=== PATIENT | female | born 1955 | race Caucasian/White ===

== ENCOUNTER 2019-07-31 13:55 | Outpatient (AMBR) | payer OTHER, MEDICAID, SELFPAY ==
--- NOTE | 2019-07-27 12:14 | PTNOTE_ITS ---
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 The shoulder pain started 3 years ago and it gets worse this past year. Her pain level prior to surgery is 10/10. MRI was done and showed rotator cuff tear. SHe had surgery last 07/10/[address] Pires. After surgery, for the first 2-3 days, the pain was constant PS 10/10. She had the shoulder sling but it makes her uncomfortable so she is not wearing it. At the time of PT evaluation she is 2 weeks post op. She has pain on her shoulder at most is PS10/10 especially during movement. She lives alone at home and nobody is assisting her in her ADL's. She takes Tylenol for pain. Her main concern is if she can go back to work after her rotator cuff surgery. She also complains of muscle tightness on her Neck. Objective R shoulder AROM // PROM Flexion 65/85 abduction 60//75 IR 50//65 ER 45//50 Extension 30//45 (+) Drop Arm Test (+) Speed's test MMT R shoulder 2-/5 grossly graded Postural assessment R shoulder is lower than L (+) muscle tightness on her Upper and middle trapezius R shoulder Surgical site has mild edema and warm to touch. Assessment Patient will benefit for strengthening ex on R shoulder muscle, Stretching, manual therapy and pain management. Patient were educated on how to do codman exercise, she was able to do return demonstration by 80% accuracy. Patient were also educated to apply Cold pack bid at home. Patient were also educated for now to avoid overhead reaching and abduction past 90deg. No lifting more than 10lbs on her R UE. APply a rolled towel whenever she is sleeping or sitting on the couch. Patient verbalized understanding. Short Term and Fpc Goals 1. Increase Muscle strength on her R shoulder to 4/5 x 12 weeks 2. To decrease pain on her R shoulder to 0/10 x 8 weeks 3. Increase ROM on her R shoulder to WNL x 8 weeks 4. I with HEP Treatment Plan Thera ex Manual tx Modalities (cold pack, hmp, US) prn Kinesiotaping. Frequency and Duration 2x/wk x 12 weeks Certification Dates: 07/27/2019 to 10/27/2019
--- NOTE | 2019-07-31 16:33 | PT.ODAYNRPT ---
PT Outpatient Daily Note Date of Service: 07/31/2019 OP Daily Note Visit Reasons: right rotator cuff repair Outpatient Physical Therapy Treatment Date: 07/31/19 Subjective: pt says her shoulder is tolerable as she does take pain meds. Objective: see flow sheet. Assessment: pt came in wiht no sling. she was performing exercises as if her shoulder was fine. she did not complain much about the pain during exercises it more about her limited mobility. she did lack the strength during her wand exercises. she was not able to bring her shoulder flexion to shoulder height. advised pt to continue wand exercises at home. Plan: continue POC per PT. Length of Time (minutes) of Treatment: 30 Minutes Office Procedures PT Procedures PT Date of Service: 07/27/19 OP PT Eval Mod Complex 30 minutes: Yes PT Procedures PT Date of Service: 07/31/19 Therapeutic Exercise 30 minutes: Yes
--- NOTE | 2019-08-06 12:42 | PT.ODAYNRPT ---
PT Outpatient Daily Note Date of Service: 08/06/2019 OP Daily Note Pediatric or Adult Patient: Adult PT >13 Visit Reasons: right rotator cuff repair Outpatient Physical Therapy Treatment Date: 08/06/19 Subjective: pain on the R shoulder Objective: pls see FS Assessment: Patient was wearing her blue shoulder sling without a shoulder abductor. She mentioned that her shoulder hurts whenever there is no support so she wears them for support. Patient were given a rolled towel to be place in between her arm and body to placed the shoulder in resting position. she mentioned that helps her to not have pain. P PROM done today No AROM as of this time. Patient has limited ROM on all shoulder movement with muscle weakness. Plan: To continue POC toward goals Pain Present Currently: Yes Length of Time (minutes) of Treatment: 30 Minutes Office Procedures PT Procedures PT Date of Service: 07/27/19 OP PT Eval Mod Complex 30 minutes: Yes PT Procedures PT Date of Service: 07/31/19 Therapeutic Exercise 30 minutes: Yes
== END 2019-08-09 23:59 | disposition home or self-care (01) ==
PROVIDERS: PCP Nurse Practitioner Primary Care; Referring Provider Nurse Practitioner Primary Care; Visit Provider Orthopaedic Surgery
DX: Z98.890 Other specified postprocedural states (principal); M25.511 Pain in right shoulder; M62.81 Muscle weakness (generalized)
CPT/HCPCS: 97110; 97162

== ENCOUNTER 2019-09-07 10:26 | Outpatient (AMBR) | payer OTHER, MEDICAID, SELFPAY ==
--- NOTE | 2019-08-13 12:17 | PT.ODAYNRPT ---
PT Outpatient Daily Note Date of Service: 08/13/2019 OP Daily Note Pediatric or Adult Patient: Adult PT >13 Visit Reasons: right rotator cuff repair Outpatient Physical Therapy Treatment Date: 08/13/19 Assessment: Patient states she is not comfortable wearing the sling at night. she is more comfortable using the pillow for support at night. Patient were advised the use the pillow at night fo support because she said without the support her shoulder hurts. During the day, she mentioned that the slings help her during the day because without support her shoulder is hanging and it hurts her. Patient is 4 weeks post op. PROM done today on R shoulder and active ROM on elbow flexion and supination and pronation with 1lb DB and digiflex for R hand. Patient was complaining of anterior elbow pain during the day. Patient were advised to not use the sling 24 hours and give it a rest to have the patient positioned the shoulder in the pillow. Plan: To continue POC toward goals. Pain Present Currently: Yes Length of Time (minutes) of Treatment: 30 Minutes
--- NOTE | 2019-08-17 10:13 | PT.ODAYNRPT ---
PT Outpatient Daily Note Date of Service: 08/17/2019 OP Daily Note Pediatric or Adult Patient: Adult PT >13 Visit Reasons: right rotator cuff repair Outpatient Physical Therapy Treatment Date: 08/17/19 Subjective: Pain on the shoulder upon movement Objective: pls see FS Assessment: Patient were given PROM on R shoulder with gentle passive stretching. AAROM on L shoulder x 25% of movement only. Patient were given HEP with PROM done. Patient was complaining of pain on her anterior elbow down to her thumb and notice she still can't hold on the cup and has slight tremor. Could probably due to muscle weakness. Still has pain in movement. Unable to do full PROM due to pain especially abduction. Abduction PROM only able to do 90deg today. Plan: To continue POC toward goals Pain Present Currently: Yes Length of Time (minutes) of Treatment: 30 Minutes Office Procedures PT Procedures PT Date of Service: 08/13/19 Therapeutic Exercise 30 minutes: Yes
--- NOTE | 2019-08-20 10:28 | PTNOTE_ITS ---
PT Outpatient Daily Note Date of Service: 08/20/2019 OP Daily Note Visit Reasons: right rotator cuff repair Outpatient Physical Therapy Treatment Date: 08/20/19 Subjective: No new complaints Objective: pls see FS Assessment: Patient went to her ortho md yesterday made him aware about the elbow pain that she has. as per MD, it will go away eventually. Patient were given PROM today and AAROm with the use of wand. Exercise were given to the point of pain not pass the pain. Patient were also given strengthening ex on elb ow. wrist and fingers. Ice pack were given post therapy. No new complaints noted. Plan: to continue POC toward goals Pain Present Currently: Yes (07/18) Length of Time (minutes) of Treatment: 30 Minutes Office Procedures PT Procedures PT Date of Service: 08/17/19 Therapeutic Exercise 30 minutes: Yes PT Procedures PT Date of Service: 08/13/19 Therapeutic Exercise 30 minutes: Yes
--- NOTE | 2019-08-24 09:20 | PT.ODAYNRPT ---
PT Outpatient Daily Note Date of Service: 08/24/19 OP Daily Note Pediatric or Adult Patient: Adult PT >13 Visit Reasons: right rotator cuff repair Outpatient Physical Therapy Treatment Date: 08/24/19 Subjective: Patient has no new complaints today Objective: Pls see FS Assessment: No pain today on the elbow area. PROM done today. No stretching today. Patient were educated that we will try to initiate gentle passive stretching on her next appt. A little bit of stretching only to the point of pain not over. Initiated isometric exercise today with 5SH x 5 reps on flexion and abduction. [employer] utilized to explained to the patient. Patient were given 2lbs for elbow flexion and extension and digiflex for hand exercise. No pain noted. Ice applied after therapy. Plan: To continue POC toward goals Length of Time (minutes) of Treatment: 30 Minutes Office Procedures PT Procedures PT Date of Service: 08/17/19 Therapeutic Exercise 30 minutes: Yes PT Procedures PT Date of Service: 08/13/19 Therapeutic Exercise 30 minutes: Yes PT Procedures PT Date of Service: 08/20/19 Therapeutic Exercise 30 minutes: Yes
--- NOTE | 2019-08-27 10:13 | PT.ODAYNRPT ---
PT Outpatient Daily Note Date of Service: 08/27/19 OP Daily Note Pediatric or Adult Patient: Adult PT >13 Visit Reasons: right rotator cuff repair Outpatient Physical Therapy Treatment Date: 08/27/19 Subjective: No new complaints Objective: pls see FS Assessment: Initiated AAROM to AROM today. Patient were able to tolerate without increase of pain. NO stretching done today. Patient were given strengthening ex on elbow, wrist and hand today. No increase in pain during therapy session. Icepack applied post therapy. Plan: To continue POC toward goals. Pain Present Currently: Yes Length of Time (minutes) of Treatment: 30 Minutes Office Procedures PT Procedures PT Date of Service: 08/17/19 Therapeutic Exercise 30 minutes: Yes PT Procedures PT Date of Service: 08/24/19 Therapeutic Exercise 30 minutes: Yes PT Procedures PT Date of Service: 08/13/19 Therapeutic Exercise 30 minutes: Yes PT Procedures PT Date of Service: 08/20/19 Therapeutic Exercise 30 minutes: Yes
--- NOTE | 2019-08-31 09:56 | PT.ODAYNRPT ---
PT Outpatient Daily Note Date of Service: 08/31/19 OP Daily Note Visit Reasons: right rotator cuff repair Outpatient Physical Therapy Treatment Date: 08/31/19 Subjective: no new complaints Objective: pls see FS Assessment: initiated light resistance exercise today. No complain of increase pain today. PS 4/10 for exercise. Initiated gentle passive stretching today towards flexion and abduction to the point of pain. Ice applied post therapy session. Plan: To continue POC toward goals. Pain Present Currently: Yes Length of Time (minutes) of Treatment: 30 Minutes Office Procedures PT Procedures PT Date of Service: 08/17/19 Therapeutic Exercise 30 minutes: Yes PT Procedures PT Date of Service: 08/24/19 Therapeutic Exercise 30 minutes: Yes PT Procedures PT Date of Service: 08/13/19 Therapeutic Exercise 30 minutes: Yes PT Procedures PT Date of Service: 08/20/19 Therapeutic Exercise 30 minutes: Yes PT Procedures PT Date of Service: 08/27/19 Therapeutic Exercise 30 minutes: Yes
--- NOTE | 2019-09-03 11:01 | PT.ODAYNRPT ---
PT Outpatient Daily Note Date of Service: 09/03/2019 OP Daily Note Visit Reasons: right rotator cuff repair Outpatient Physical Therapy Treatment Date: 09/03/19 Subjective: pt states her does have some pain but better. Objective: see flow sheet. Assessment: she demonstrated good shoulder flexion while going up the ladder with single arm. added shoulder iso's using the ball against the pole. at first she keeps her arm close to her body so cued for her to stand away from arm during the reps. she did not complain of increase in pain. she completed each iso rep with good muscle activation. her shoulder does have fair ROM as observed her during wand exercises with no compensations. Plan: continue POC per PT. Length of Time (minutes) of Treatment: 30 Minutes Office Procedures PT Procedures PT Date of Service: 08/17/19 Therapeutic Exercise 30 minutes: Yes PT Procedures PT Date of Service: 08/24/19 Therapeutic Exercise 30 minutes: Yes PT Procedures PT Date of Service: 08/31/19 Therapeutic Exercise 30 minutes: Yes PT Procedures PT Date of Service: 08/13/19 Therapeutic Exercise 30 minutes: Yes PT Procedures PT Date of Service: 08/20/19 Therapeutic Exercise 30 minutes: Yes PT Procedures PT Date of Service: 08/27/19 Therapeutic Exercise 30 minutes: Yes PT Procedures PT Date of Service: 09/03/19 Therapeutic Exercise 30 minutes: Yes
--- NOTE | 2019-09-07 12:25 | PT.ODS1RPT ---
PT OP Progress/Discharge Note Date of Service: 09/07/19 Progress Note/DC Note Progress Note/Discharge Note: Progress Note Patient Information Pediatric or Adult Patient: Adult PT >13 Visit Reasons: right rotator cuff repair Medical Diagnosis: R rotator cuff surgery Treatment Dx #1: R shoulder pain Treatment Dx #2: muscle weakness Service Continue Service or Discharge: Continue Service Plan Treatment Plan: Thera ex Manual therapy cold pack Frequency and Duration: 2x/wk x 6 weeks Status Subjective: Patient has less pain today. PS 3/10 at worst and 0/10 at best level. She was able to start moving and doing her ADL's Objective: R shoulder AROM // PROM Flexion 130/150 Abduction 75/130 ER 60//65 IR = WNL MMT Shoulder flexors, abductors and ER = 3+/5 IR 4/5 R shoulder is still lower than L Mild edema on Rshoulder. Assessment: Patient states she is feeling better with less pain. Will benefit to continue Physical therapy for strengthening ex on R shoulder. Manual therapy for stretching and STM. Will need to see patient for more visits to achieve this goal. Plan: To continue pOC toward goals. Treatment Provided This POC: Thera ex manual therapy Office Procedures PT Procedures PT Date of Service: 08/17/19 Therapeutic Exercise 30 minutes: Yes PT Procedures PT Date of Service: 08/24/19 Therapeutic Exercise 30 minutes: Yes PT Procedures PT Date of Service: 08/31/19 Therapeutic Exercise 30 minutes: Yes PT Procedures PT Date of Service: 08/13/19 Therapeutic Exercise 30 minutes: Yes PT Procedures PT Date of Service: 08/20/19 Therapeutic Exercise 30 minutes: Yes PT Procedures PT Date of Service: 08/27/19 Therapeutic Exercise 30 minutes: Yes PT Procedures PT Date of Service: 09/03/19 Therapeutic Exercise 30 minutes: Yes
== END 2019-09-08 23:59 | disposition home or self-care (01) ==
PROVIDERS: PCP Nurse Practitioner Primary Care; Referring Provider Orthopaedic Surgery; Visit Provider Orthopaedic Surgery
DX: Z47.89 Encounter for other orthopedic aftercare (principal); M25.561 Pain in right knee; M62.81 Muscle weakness (generalized)
CPT/HCPCS: 97110

== ENCOUNTER 2019-10-08 08:25 | Outpatient (AMBR) | payer OTHER, MEDICAID, SELFPAY ==
--- NOTE | 2019-09-10 10:58 | PT.ODAYNRPT ---
PT Outpatient Daily Note Date of Service: 09/10/2019 OP Daily Note Visit Reasons: right rotator cuff repair Outpatient Physical Therapy Treatment Date: 09/10/19 Subjective: no new complaints Objective: pls see FS Assessment: Patient were given strengthening ex on her R shoulder 1lb DB on Rshoulder up to 90deg flexion and abduction. Patient requires verbal cues to not overstretch the shoulder. No increase in pain noted but complains of fatigue. Restbreaks given as needed. Patient were given Green TB for shoulder flexion and abduction and red TB for shoulder scaption. Plan: to continue POC toward goals Pain Present Currently: Yes (3/10) Length of Time (minutes) of Treatment: 30 Minutes
--- NOTE | 2019-09-17 10:03 | PT.ODAYNRPT ---
PT Outpatient Daily Note Date of Service: 09/17/19 OP Daily Note Pediatric or Adult Patient: Adult PT >13 Visit Reasons: right rotator cuff repair Outpatient Physical Therapy Treatment Date: 09/17/19 Subjective: Patient is feeling better and less complain of pain. Objective: pls see FS Assessment: Patient were given strengthening ex RUE. She also noted to have R LOM on shoulder abduction. Joint mobilization with caudal glide. Gentle passive stretching with ER. Plan: to continue POC toward goals Pain Present Currently: Yes Length of Time (minutes) of Treatment: 30 Minutes Office Procedures PT Procedures PT Date of Service: 09/10/19 Therapeutic Exercise 30 minutes: Yes
--- NOTE | 2019-09-21 09:39 | PT.ODAYNRPT ---
PT Outpatient Daily Note Date of Service: 09/21/19 OP Daily Note Visit Reasons: right rotator cuff repair Outpatient Physical Therapy Treatment Date: 09/21/19 Subjective: Pain on the anterior elbow and anterior forearm Objective: pls see FS Assessment: Patient were given Joint mobilization on the shoulder caudal glide due to shoulder abduction restrictions. Patient also noted to have weak abductor muscles. Patient tolerated all the mgt given today without increase in pain. Plan: to continue pOC toward goals. Pain Present Currently: Yes Length of Time (minutes) of Treatment: 30 Minutes Office Procedures PT Procedures PT Date of Service: 09/10/19 Therapeutic Exercise 30 minutes: Yes PT Procedures PT Date of Service: 09/17/19 Therapeutic Exercise 30 minutes: Yes
--- NOTE | 2019-09-24 08:41 | PT.ODAYNRPT ---
PT Outpatient Daily Note Date of Service: 09/24/19 OP Daily Note Visit Reasons: right rotator cuff repair Outpatient Physical Therapy Treatment Date: 09/24/19 Subjective: pain on the R anterior elbow and anterior forearm Objective: pls see FS Assessment: Patient were given strengthening ex on Bilateral UE. No complain of pain on BUE during exercise. Position patient on comfort while doing exercise. Patient were reminded on HEP today. Plan: to continue POC toward goals Pain Present Currently: Yes Length of Time (minutes) of Treatment: 30 Minutes Office Procedures PT Procedures PT Date of Service: 09/10/19 Therapeutic Exercise 30 minutes: Yes PT Procedures PT Date of Service: 09/17/19 Therapeutic Exercise 30 minutes: Yes PT Procedures PT Date of Service: 09/21/19 Therapeutic Exercise 30 minutes: Yes
--- NOTE | 2019-09-28 08:32 | PT.ODAYNRPT ---
PT Outpatient Daily Note Date of Service: 09/28/2019 OP Daily Note Pediatric or Adult Patient: Adult PT >13 Visit Reasons: right rotator cuff repair Outpatient Physical Therapy Treatment Date: 09/28/19 Subjective: No significant pain on the shoulder over the past week. At most as per patient is PS4/10 Objective: pls see FS Assessment: Patient were given strengthening ex on R shoulder today. No increase in pain noted. Patient were given cold pack post treatment. Patient is progressing steadily toward goals. Plan: to continue pOC toward goals Pain Present Currently: No Length of Time (minutes) of Treatment: 30 Minutes Office Procedures PT Procedures PT Date of Service: 09/24/19 Therapeutic Exercise 30 minutes: Yes PT Procedures PT Date of Service: 09/10/19 Therapeutic Exercise 30 minutes: Yes PT Procedures PT Date of Service: 09/17/19 Therapeutic Exercise 30 minutes: Yes PT Procedures PT Date of Service: 09/21/19 Therapeutic Exercise 30 minutes: Yes
--- NOTE | 2019-10-01 08:53 | PT.ODAYNRPT ---
PT Outpatient Daily Note Date of Service: 10/01/19 OP Daily Note Visit Reasons: right rotator cuff repair Outpatient Physical Therapy Treatment Date: 10/01/19 Subjective: No new complaints Objective: pls see FS Assessment: Patient is progressing steadily toward goals. Patient requires verbal cues if needed for safety in performing the exercises in accurate position. Rest breaks needed to prevent fatigue. Patient were able to do all exercise without aggravation of pain. Ice pack applied post therapy session. Plan: to continue POC toward goals Pain Present Currently: Yes (05/18) Length of Time (minutes) of Treatment: 30 Minutes Office Procedures PT Procedures PT Date of Service: 09/24/19 Therapeutic Exercise 30 minutes: Yes PT Procedures PT Date of Service: 09/10/19 Therapeutic Exercise 30 minutes: Yes PT Procedures PT Date of Service: 09/17/19 Therapeutic Exercise 30 minutes: Yes PT Procedures PT Date of Service: 09/21/19 Therapeutic Exercise 30 minutes: Yes PT Procedures PT Date of Service: 09/28/19 Therapeutic Exercise 30 minutes: Yes
--- NOTE | 2019-10-05 08:59 | PT.ODAYNRPT ---
PT Outpatient Daily Note Date of Service: 10/05/19 OP Daily Note Visit Reasons: right rotator cuff repair Outpatient Physical Therapy Treatment Date: 10/05/19 Subjective: I have muscle soreness post therapy session. Objective: pls see FS Assessment: Patient were given strengthening ex today as tolerated. Patient were given Blue TB for HEP. Patient verbalized understanding and were able to do return demonstration by 100% accuracy. Ice pack applied post therapy session Plan: to continue POC toward goals Pain Present Currently: Yes Length of Time (minutes) of Treatment: 30 Minutes Office Procedures PT Procedures PT Date of Service: 09/24/19 Therapeutic Exercise 30 minutes: Yes PT Procedures PT Date of Service: 10/01/19 Therapeutic Exercise 30 minutes: Yes PT Procedures PT Date of Service: 09/10/19 Therapeutic Exercise 30 minutes: Yes PT Procedures PT Date of Service: 09/17/19 Therapeutic Exercise 30 minutes: Yes PT Procedures PT Date of Service: 09/21/19 Therapeutic Exercise 30 minutes: Yes PT Procedures PT Date of Service: 09/28/19 Therapeutic Exercise 30 minutes: Yes
--- NOTE | 2019-10-08 08:51 | PT.ODS1RPT ---
PT OP Progress/Discharge Note Date of Service: 10/08/19 Progress Note/DC Note Progress Note/Discharge Note: DC Note Patient Information Pediatric or Adult Patient: Adult PT >13 Visit Reasons: right rotator cuff repair Medical Diagnosis: R rotator cuff surgery Treatment Dx #1: R shoulder pain Treatment Dx #2: muscle weakness Service Continue Service or Discharge: Discharge Discharge Date: 10/08/19 Certification Date Certification Dates: 10/08/19 Status Subjective: 64 y/o female who had R rotator cuff surgery repair last 07/10/19. Patient has been feeling better and stronger with less episodes of pain only when shoulder is stretch to upward movement. Objective: AROM // PROM R shoulder flexion 170//180 R shoulder abduction 170//180 ER 80//90 IR 90 MMT R UE 4+/5 grossly graded Pain during stretching 3/10. at best during movement without overhead stretching 0/10 (-) edema on the R shoulder Assessment: Patient will be dc from PT services secondary to goals achieved. Patient were given blue TB last week for HEP and were given self stretching today for HEP. Patient were able to do return demonstration by 100% accuracy. Patient were able to do ADL's without difficulty and putting and taking off clothes. Patient states she will be back because her L knee is bothering her. Overall patient is pleased with the outcome. Plan: Patient will be dc from PT services Discharge Comment: Patient will be dc from PT services secondary to goals achieved. All questions answered and with the help of Rajni lewis to interpret. Office Procedures PT Procedures PT Date of Service: 09/24/19 Therapeutic Exercise 30 minutes: Yes PT Procedures PT Date of Service: 10/01/19 Therapeutic Exercise 30 minutes: Yes PT Procedures PT Date of Service: 09/10/19 Therapeutic Exercise 30 minutes: Yes PT Procedures PT Date of Service: 09/17/19 Therapeutic Exercise 30 minutes: Yes PT Procedures PT Date of Service: 09/21/19 Therapeutic Exercise 30 minutes: Yes PT Procedures PT Date of Service: 09/28/19 Therapeutic Exercise 30 minutes: Yes PT Procedures PT Date of Service: 10/05/19 Therapeutic Exercise 30 minutes: Yes
== END 2019-10-08 09:10 | disposition home or self-care (01) ==
PROVIDERS: PCP Nurse Practitioner Primary Care; Referring Provider Nurse Practitioner Primary Care; Visit Provider Orthopaedic Surgery
DX: Z98.890 Other specified postprocedural states (principal); M25.511 Pain in right shoulder; M62.81 Muscle weakness (generalized)
CPT/HCPCS: 97110